=== PATIENT | male | born 1985 | race Caucasian/White ===

== ENCOUNTER 2023-10-17 20:57 | Emergency (ER) | payer OTHER, SELFPAY ==
[2023-10-17 21:00] VITALS: BP 158/110
--- NOTE | 2023-10-17 22:10 | ED.GENMED ---
History of Present Illness
General
Chief Complaint: Breathing Problem
Source: patient
Exam Limitations: none
Time Seen by Provider: 10/17/23 21:50
Travel History
Have you had any contact with someone who has COVID-19?: No
Do you have any symptoms of coronavirus? Fever > 100 degrees, chills, cough, shortness of breath, sore throat, loss of taste or smell, muscle aches, or headache?: No
History of Present Illness
History of Present Illness:
This is a 38 year old male that comes in with c/o anxiety and chest tightness. States that he was using his nebulizer and he felt like it was not working. State that he started to feel SOB and chest tightness. States that he started to feel
disoriented. States that he has seen his PCP and he was given something for anxiety that he takes in the morning. States that he also had an episode yesterday at 3am and he did not come in. Denies any fever, chills, abd pain, nausea, vomiting,
diarrhea, headache, urinary burning.
Past History
Past History
ED Past Medical History: COPD, HTN (with the Use of Albuterol) and Other (Migraines)
ED Past Surgical History: Orthopedic (Right ankle surgery) and Other (Sinus surgery)
Social History
Tobacco: Smoker (1ppd)
Alcohol: None
Drug: Marijuana (smokes daily)
Personal: Single
Living: with family
Family History
Family History: Negative Diabetes, Hypertension or CAD
Review of Systems
Review of Systems
All Other Systems: ROS reviewed and negative except as documented in HPI and ROS
Constitutional: Reports no symptoms; Denies fever or chills
EENT: Reports no symptoms
Respiratory: Reports trouble breathing (Slight); Denies cough
Cardiac: Reports chest pain (Tightness)
ABD/GI: Reports no symptoms; Denies abdominal pain, nausea, vomiting or diarrhea
: Reports no symptoms; Denies dysuria, frequency or urgency
Musculoskeletal: Reports no symptoms
Skin: Reports no symptoms
Neurological: Reports other (felt disoriented); Denies headache
Psychiatric: Reports no symptoms
Phy Exam
General Physical Exam
General Presentation: no apparent distress
General age: appears stated age
General Skin: warm and dry
General Habitus: normal
General Mental: alert
General Hydration: appears well hydrated
ENT Exam
ENT Exam: TM's normal, pharynx normal and neck supple
Eye Exam
Eye Exam: EOMI
Cardiovascular Exam
Cardiovascular Exam: regular rate/rhythm, no edema, no murmur and normal peripheral pulses
Pulmonary Exam
Pulmonary Exam: lungs clear, no respiratory distress, no rales, chest non tender, no crackles, no rhonchi, no wheezing and no cough
Gastrointestinal Exam
Gastrointestinal Exam: normal bowel sounds, soft, no organomegaly, no pulsatile mass, non distended and tender (Upper abd tenderness with palpation)
Musculoskeletal Exam
Musculoskeletal Exam: full ROM
Skin Exam
Skin Exam: normal color, warm/dry, no rash and no petechia
Psychiatric Exam
Psychiatric Exam: normal mood/affect
Course
Orders/Labs/Results
Orders:
Orders
10/17/23 22:09
Electrocardiogram (*1) Urgent
Reason for Study: Shortness of Breath
EKG- Treatment ONCE
Lorazepam [Ativan] 1 mg PO NOW STA
10/17/23 22:14
Pantoprazole [Protonix IV] 40 mg IV NOW STA
10/17/23 22:23
Comprehensive Metabolic Panel Urgent
Troponin I Urgent
10/17/23 22:24
Complete Blood Count/With Diff Urgent
Abnormal Lab Results
10/17/23
22:24
WBC 11.3 H 10^3/uL
(4.8-10.8)
RBC 4.67 L 10^6/uL
(4.70-6.10)
MCH 33.2 H pg
(27.0-31.0)
Abs Immat Gran (auto) 0.1 H 10^3/uL
(0-0.05)
Absolute Neuts (auto) 7.1 H 10^3/uL
(1.4-6.5)
Absolute Monos (auto) 0.9 H 10^3/uL
(0.1-0.6)
Immature Gran % 0.7 H %
(0-0.5)
10/17/23 22:24
10/17/23 22:23
WBC very slightly elevated. Otherwise labs normal.
Vital Signs
Initial and Last Documented VS:
Initial Vital Signs
Temp Pulse Resp BP Pulse Ox
98.7 F 102 22 158/110 95
10/17/23 21:00 10/17/23 21:00 10/17/23 21:00 10/17/23 21:00 10/17/23 21:00
Last Documented Vital Signs
Temp Pulse Resp BP Pulse Ox
98.7 F 95 24 158/110 95
10/17/23 21:00 10/17/23 22:30 10/17/23 22:30 10/17/23 21:00 10/17/23 21:00
MDM/Problems Addressed
Differential Diagnosis Includes:
Anxiety
MDM/Problems Addressed:
This is a 38 year old male that comes in with c/o anxiety. States that he felt like his Nebulizer was not working and the he started with chest tightness. States that he had an episode yesterday but did not come in.
Will check labs, Give Ativan and Protonix.
Back into see patient. Patient states that he is feeling better. Explained that this is most likely all anxiety. Encouraged patient to follow up with the family doctor and a Psychiatrist for further evaluation. Patient to return with any concerns.
Chronic conditions affecting care: COPD
Acute Exacerbation and/or Progression of Chronic Illness:
NA
*Pulse Oximetry
Patient hypoxic: no
*It Infrastructure Architect Interpretation
Rate: tachycardiac
Heart Rate: 102
Rhythm: sinus tachycardia
*Critical Care Note
Total Time (30-74mins, 75-104mins- exclusive of procedures): Not Applicable
ED Attending Note
-
Portions of this chart may have been created with voice recognition software.� Occasional wrong word or��sound alike� substitutions may have occurred due to the inherent limitations of voice recognition software.
Discharge Plan
Departure
Patient Disposition: Home (Routine Discharge)
Date of Disposition: 10/17/23
Time of Disposition: 23:27
Patient with high blood pressure during this ER visit?: Yes
Condition: Good
Covid-19: Not Applicable
Discharge Problem:
Anxiety
Instructions: Anxiety, Adult (DC)
Prescriptions:
No Action
Primatene Mist 0.125 mg/actuation Hfa Aerosol Inhaler
1 puff INHALATION Q4H PRN (Reason: SOB)
ipratropium-albuterol 0.5 mg-3 mg(2.5 mg base)/3 mL solution for nebulization
3 ml inhalation Q8H PRN (Reason: shortness of breath or wheezing) Qty: 180 0RF
albuterol sulfate 90 mcg/actuation HFA aerosol inhaler
2 puff inhalation Q6H PRN (Reason: shortness of breath or wheezing) Qty: 6.7 0RF
prednisone 10 mg Tablet
See Rx Instructions .ROUTE .COMPLEX Qty: 18 0RF
Patient Comments:
06/01/23: pt on day 1 of 20mg dose
Rx Instructions:
Take By Mouth:
30 mg daily x3 days,
20 mg daily x3 days, 10 mg daily x3 days.
budesonide 0.5 mg/2 mL suspension for nebulization
0.5 mg inhalation R BID
doxycycline hyclate 100 mg capsule
100 mg PO Q12
pantoprazole 40 mg tablet,delayed release (DR/EC)
40 mg PO DAILY
Referrals:
Cony Maradiaga MD [Family Provider] - Call in 1-3 days for appt
Activity Restrictions/Additional Instructions:
As discussed, your blood work shows that your WBC are slightly elevated. This can happen with stress. This appears to be anxiety. Please follow up with the family doctor and your need to see a Psychiatrist for further evaluation. IF YOU HAVE ANY
OTHER CONCERNS PLEASE RETURN TO THE EMERGENCY ROOM.
Interventions
Interventions:
*Risk Screen - Suicide Last Done: 10/17/23 21:00
*General Assessment Last Done: 10/17/23 22:29
*Neglect/Abuse Screening Last Done: 10/17/23 21:00
ED- Cardiac Assessment Last Done: 10/17/23 22:29
ED- Pulmonary Assessment Last Done: 10/17/23 22:29
[2023-10-17] MEDS: PROTONIX IV 40 MG IV (22:24)
[2023-10-17] MEDS: ATIVAN 1 MG PO (22:24)
[2023-10-17 22:34] LABS: % Basophils 0.7 % (0-2); % Eosinophils 2.9 % (0-6); % Immature Granulocytes 0.7 % (0-0.5); % Lymphocytes 25.1 % (20.5-51.1); % Monocytes 8.2 % (1.7-9.3); % Neutrophils 62.4 % (42.2-75.2); Absolute Basophils 0.1 10^3/uL (0-0.2); Absolute Eosinophils 0.3 10^3/uL (0-0.7); Absolute Immature Granulocytes 0.1 10^3/uL (0-0.05); Absolute Lymphocytes 2.9 10^3/uL (1.2-3.4); Absolute Monocytes 0.9 10^3/uL (0.1-0.6); Absolute Neutrophils 7.1 10^3/uL (1.4-6.5); Hematocrit 42.6 % (39.0-52.0); Hemoglobin 15.5 g/dL (13.0-18.0); Mean Corp Hgb Conc. 36.4 g/dL (33.0-37.0); Mean Corpuscular Hgb 33.2 pg (27.0-31.0); Mean Corpuscular Volume 91.2 fL (80.0-94.0); Mean Platelet Volume 10.3 fL (7.4-10.4); Nucleated Red Blood Cells % 0 % (-); Platelet Count 207 10^3/uL (130-400); Red Blood Cell Count 4.67 10^6/uL (4.70-6.10); Red Cell Dist. Width 12.7 % (11.5-14.5); White Blood Cell Count 11.3 10^3/uL (4.8-10.8)
[2023-10-17 22:56] LABS: ALT (SGPT) 25 U/L (0-50); AST (SGOT) 23 U/L (17-59); Albumin 4.6 g/dl (3.5-5.0); Alkaline Phosphatase 65 U/L (38-126); Blood Urea Nitrogen 15 mg/dl (9-20); Calcium 9.3 mg/dl (8.4-10.2); Carbon Dioxide 25 mmol/L (22-30); Chloride 107 mmol/L (98-107); Glucose 84 mg/dl (70-99); Sodium 138 mmol/L (135-145); Total Protein 7.1 g/dl (6.3-8.2); eGFR > 60.00
[2023-10-17 22:58] LABS: Troponin I < 0.012 ng/ml
[2023-10-17 23:29] VITALS: BP 141/91
== END 2023-10-18 00:07 | disposition home or self-care (01) ==
LOC: EMR 20:57
PROVIDERS: Clinical Nurse Specialist Family Health; EMERGENCY PHYSICIAN Emergency Medicine; FAMILY PHYSICIAN Internal Medicine
DX: F41.9 Anxiety disorder, unspecified (principal); R07.89 Other chest pain; J44.9 Chronic obstructive pulmonary disease, unspecified; I10 Essential (primary) hypertension; F17.200 Nicotine dependence, unspecified, uncomplicated
CPT/HCPCS: 99283; 96374; 80053; 84484; 85025; 93005

== ENCOUNTER 2023-10-19 06:18 | Emergency (ER) | payer SELFPAY ==
[2023-10-19 06:25] VITALS: BMI 35.1
[2023-10-19 06:28] VITALS: BP 139/100
--- NOTE | 2023-10-19 06:28 | ED.GENMED ---
History of Present Illness
General
Chief Complaint: Anxiety
Source: patient
Exam Limitations: none
Time Seen by Provider: 10/19/23 06:23
Travel History
Have you had any contact with someone who has COVID-19?: No
Do you have any symptoms of coronavirus? Fever > 100 degrees, chills, cough, shortness of breath, sore throat, loss of taste or smell, muscle aches, or headache?: No
History of Present Illness
History of Present Illness:
See MDM
Past History
Past History
ED Past Medical History: COPD, HTN (with the Use of Albuterol) and Other (Migraines)
ED Past Surgical History: Orthopedic (Right ankle surgery) and Other (Sinus surgery)
Social History
Tobacco: Smoker (1ppd)
Alcohol: None
Drug: Marijuana (smokes daily)
Personal: Single
Living: with family
Family History
Family History: Negative Diabetes, Hypertension or CAD
Phy Exam
Physical Exam
Physical Exam:
See MDM
Course
Orders/Labs/Results
Orders:
Orders
10/19/23 06:23
ECG [Electrocardiogram (*1)] Urgent
Reason for Study: Shortness of Breath
Cardiology Consult: Unknown
10/19/23 06:24
EKG- Treatment ONCE
10/19/23 06:28
CR Chest - 2 Views Urgent
Comment:
Reason For Exam: SOB
Vital Signs
Initial and Last Documented VS:
Initial Vital Signs
Pulse Resp BP Pulse Ox
79 20 139/100 97
10/19/23 06:28 10/19/23 06:28 10/19/23 06:28 10/19/23 06:28
Last Documented Vital Signs
Pulse Resp BP Pulse Ox
79 20 139/100 97
10/19/23 06:28 10/19/23 06:28 10/19/23 06:28 10/19/23 06:28
MDM/Problems Addressed
Differential Diagnosis Includes:
HPI and MDM Narrative:
38-year-old male presenting for evaluation of shortness of breath. He was here few days ago for the similar issues. At that time, it was believed to be anxiety. Patient states he woke up from sleep this morning and was unable to breathe. He
called 911 and symptoms resolved on their own.
On arrival, patient is in no acute distress. Lungs are clear. Given that this is his second ER visit for the same issue, will obtain chest x-ray and EKG headache
Physical exam
General: Well appearing and non-toxic
HEENT: protecting airway
Neck: appears supple
CV: No evidence of cyanosis
Resp: No accessory muscle use. Lungs clear
Abd: Non-distended
Extremities: No deformities
Neuro: alert
Psych: Normal affect
Skin: Intact
Problems Addressed including Acute and Chronic Conditions affecting care:
1. Shortness of breath
Acuity: acute
Prognosis: stable
Details: Symptoms appear to have resolved on their own. Patient is unsure if this to anxiety. Will obtain chest x-ray
Updates
Chest x-ray clear. On multiple reassessments, patient remains well-appearing and nontoxic. The shortness of breath has not returned. I discussed that he should talk to his primary care doctor about anxiety and shortness of breath from sleep. We
discussed the possibility of undiagnosed sleep apnea
Differential Diagnosis (but not limited to): Anxiety, viral
Testing considered: Repeating blood work
Drug therapy (if applicable): OTC meds, please see d/c instruction regarding Rx drugs
Amount and/or Complexity of Data Reviewed
Clinical info obtained from: Patient
External data reviewed: N/A
Labs I independently reviewed (but not limited to): N/A
Radiology: X-ray independently reviewed: Chest x-ray clear
Pulse Ox: not hypoxic
EKG independently reviewed: Sinus rhythm, normal axis, no STEMI
Cotton Ball Machine Tender: N/A
Critical Care: N/A
Risk of Complication:
Social Determinants of health: Good social support
Discussed with other providers: N/A
Escalation of Care includes Admit/Obs: After being observed in the Emergency Department, pt stable for discharge.
Occasional wrong word or 'sound a like' substitutions may have occurred due to the inherent limitations of voice recognition software. Read the chart carefully and recognize, using context, where substitutions have occurred.
*Critical Care Note
Total Time (30-74mins, 75-104mins- exclusive of procedures): Not Applicable
ED Attending Note
-
Portions of this chart may have been created with voice recognition software.� Occasional wrong word or��sound alike� substitutions may have occurred due to the inherent limitations of voice recognition software.
Discharge Plan
Departure
Patient Disposition: Home (Routine Discharge)
Date of Disposition: 10/19/23
Time of Disposition: 07:33
Patient with high blood pressure during this ER visit?: Yes
Discharge Problem:
Acute dyspnea
Instructions: BLOOD PRESSURE
Prescriptions:
No Action
Primatene Mist 0.125 mg/actuation Hfa Aerosol Inhaler
1 puff INHALATION Q4H PRN (Reason: SOB)
albuterol sulfate 90 mcg/actuation HFA aerosol inhaler
2 puff inhalation Q6H PRN (Reason: shortness of breath or wheezing) Qty: 6.7 0RF
escitalopram oxalate
10 mg PO DAILY
Referrals:
Cony Maradiaga MD [Family Provider] -
Activity Restrictions/Additional Instructions:
Please return for any worsening symptoms.
You may return at any time if you have further concerns.
Please follow up with your doctor at the first available appointment, preferably this week. It is not clear what is causing your shortness of breath episodes. Please talk to your doctor about anxiety and possible sleep apnea.
Thank you for choosing [facility].
Interventions
Interventions:
*Risk Screen - Suicide Last Done: 10/19/23 06:20
*General Assessment Last Done: 10/19/23 06:20
*Neglect/Abuse Screening Last Done: 10/19/23 06:20
ED- Fall Risk Assessment Last Done: 10/19/23 06:28
*ED COVID-19 Vaccine History Last Done: 10/19/23 06:20
ED-Psychological Assessment Last Done: 10/19/23 06:28
[2023-10-19 07:45] VITALS: BP 138/88
== END 2023-10-19 07:45 | disposition home or self-care (01) ==
LOC: EMR 06:18
PROVIDERS: EMERGENCY PHYSICIAN Student in an Organized Health Care Education/Training Program; FAMILY PHYSICIAN Internal Medicine
DX: R06.00 Dyspnea, unspecified (principal); R06.02 Shortness of breath; I10 Essential (primary) hypertension; F17.210 Nicotine dependence, cigarettes, uncomplicated; F41.9 Anxiety disorder, unspecified
CPT/HCPCS: 99284; 71046; 93005

== ENCOUNTER 2023-10-20 19:52 | Emergency (ER) | payer SELFPAY ==
[2023-10-20 19:53] VITALS: BMI 34.9
[2023-10-20 19:57] VITALS: BP 166/99
[2023-10-20 20:22] LABS: COVID-19 Antigen Negative (Negative)
[2023-10-20 21:12] VITALS: BP 154/109
--- NOTE | 2023-10-20 21:18 | EDRN ---
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 Pt. reports he was given 'the same medicine that you guys had given me for anxiety'.
Pt. reports was then discharged from [facility].
[2023-10-20 22:00] VITALS: BP 151/95
--- NOTE | 2023-10-20 22:28 | ED.GENMED ---
History of Present Illness
<RAMON Christensen - Last Filed: 10/21/23 03:31>
General
Chief Complaint: Breathing Problem
Source: patient
Exam Limitations: none
Time Seen by Provider: 10/20/23 22:08
Nursing documentation reviewed up to this point in time: agreed with
Travel History
Have you had any contact with someone who has COVID-19?: No
Do you have any symptoms of coronavirus? Fever > 100 degrees, chills, cough, shortness of breath, sore throat, loss of taste or smell, muscle aches, or headache?: No
History of Present Illness
History of Present Illness:
This is a 38 year old male, with a PMH of anxiety and asthma, who presents to the ED c/o SOB x 6 hours. Pt states he was seen here twice in the past 5 days and was also seen at [facility] 2 days ago for the same problem. He was told that all of his
testing was normal and that he was experiencing anxiety. He states his symptoms have been coming and going and tonight they lasted for about 6 hours. He felt as though his chest was tight and he was having difficulty taking a deep breath. Pt also
states he has had some palpitations and a dry cough during these episodes. He saw his spar cap beveler today who told him he has COPD. Pt also adds that he lives with his grandma who tends to make him feel anxious during these episodes. He used his
albuteral inhaler 20 minutes ago which has helped. He currently has no symptoms. He denies any congestion, SPRINGER, nausea, vomiting, fever, or any wheezing.
Past History
<RAMON Christensen - Last Filed: 10/21/23 03:31>
Past History
ED Past Medical History: Asthma, COPD, HTN (with the Use of Albuterol) and Other (Migraines)
ED Past Surgical History: Orthopedic (Right ankle surgery) and Other (Sinus surgery)
Social History
Tobacco: Smoker (1ppd)
Alcohol: None
Drug: Marijuana (smokes daily)
Personal: Single
Living: with family
Family History
Family History: Negative Diabetes, Hypertension or CAD
Review of Systems
<RAMON Christensen - Last Filed: 10/21/23 03:31>
Review of Systems
Allergies reviewed?: Yes
All Other Systems: ROS reviewed and negative except as documented in HPI and ROS
Constitutional: Reports no symptoms; Denies fever or chills
EENT: Reports no symptoms; Denies sore throat
Respiratory: Reports cough and trouble breathing
Cardiac: Reports chest pain ('tightness') and palpitations
ABD/GI: Denies nausea or vomiting
: Reports no symptoms
Musculoskeletal: Reports no symptoms
Skin: Reports no symptoms
Neurological: Reports no symptoms; Denies headache
Psychiatric: Reports anxiety
Phy Exam
<RAMON Christensen - Last Filed: 10/21/23 03:31>
General Physical Exam
General Presentation: mild distress
General age: appears stated age
General Skin: warm and dry
General Habitus: normal
General Mental: alert
General Hydration: appears well hydrated
ENT Exam
ENT Exam: pharynx normal, normocephalic and swallowing well
Cardiovascular Exam
Cardiovascular Exam: regular rate/rhythm, no edema, no murmur and normal peripheral pulses
Pulmonary Exam
Pulmonary Exam: lungs clear, no respiratory distress, no rales, no crackles, no rhonchi, no wheezing and no cough
Oxygen Status: room air
Gastrointestinal Exam
Gastrointestinal Exam: normal bowel sounds, non tender, soft and non distended
Neurological Exam
Neurological Exam: alert and oriented x3
Musculoskeletal Exam
Musculoskeletal Exam: full ROM and no edema
Skin Exam
Skin Exam: normal color and warm/dry
Psychiatric Exam
Psychiatric Exam: normal mood/affect
Course
<RAMON Christensen - Last Filed: 10/21/23 03:31>
Orders/Labs/Results
Orders:
Orders
10/20/23 20:02
COVID-19 Antigen Urgent
Source: Nasal Swab
Influenza A+B Rapid Molecular Urgent
CARLOS Source: Nasal Swab
Specimen Description:
10/20/23 22:10
ECG [Electrocardiogram (*1)] Urgent
Reason for Study: Chest Pain
10/20/23 22:12
EKG- Treatment ONCE
10/20/23 22:57
Crisis Consult Urgent
Reason for Consult: anxiety
Comment: resources for outpt?
Lorazepam [Ativan] 0.25 mg IV NOW STA
10/20/23 23:33
Complete Blood Count/With Diff Urgent
Comprehensive Metabolic Panel Urgent
Troponin I Urgent
10/21/23 00:47
US Abdomen Complete/Upper Urgent
Comment:
Reason For Exam: elev tbili, cp
Abnormal Lab Results
10/20/23
23:33
WBC 11.9 H 10^3/uL
(4.8-10.8)
MCH 33.2 H pg
(27.0-31.0)
MPV 10.5 H fL
(7.4-10.4)
Abs Immat Gran (auto) 0.1 H 10^3/uL
(0-0.05)
Absolute Neuts (auto) 6.9 H 10^3/uL
(1.4-6.5)
Absolute Lymphs (auto) 3.7 H 10^3/uL
(1.2-3.4)
Absolute Monos (auto) 0.9 H 10^3/uL
(0.1-0.6)
Immature Gran % 0.6 H %
(0-0.5)
Carbon Dioxide 17 L mmol/L
(22-30)
Creatinine 0.6 L mg/dL
(0.7-1.3)
Total Bilirubin 1.4 H mg/dl
(0.2-1.3)
10/20/23 23:33
10/20/23 23:33
Vital Signs
Initial and Last Documented VS:
Initial Vital Signs
Temp Pulse Resp BP Pulse Ox
97.5 F 90 24 166/99 98
10/20/23 19:57 10/20/23 19:57 10/20/23 19:57 10/20/23 19:57 10/20/23 19:57
Last Documented Vital Signs
Temp Pulse Resp BP Pulse Ox
97.5 F 72 22 132/101 95
10/20/23 19:57 10/21/23 02:15 10/21/23 02:15 10/21/23 02:07 10/21/23 02:15
<Rodriguez Richards, DO - Last Filed: 10/21/23 02:09>
Orders/Labs/Results
Orders:
Orders
10/20/23 20:02
COVID-19 Antigen Urgent
Source: Nasal Swab
Influenza A+B Rapid Molecular Urgent
CARLOS Source: Nasal Swab
Specimen Description:
10/20/23 22:10
ECG [Electrocardiogram (*1)] Urgent
Reason for Study: Chest Pain
10/20/23 22:12
EKG- Treatment ONCE
10/20/23 22:57
Crisis Consult Urgent
Reason for Consult: anxiety
Comment: resources for outpt?
Lorazepam [Ativan] 0.25 mg IV NOW STA
10/20/23 23:33
Complete Blood Count/With Diff Urgent
Comprehensive Metabolic Panel Urgent
Troponin I Urgent
10/21/23 00:47
US Abdomen Complete/Upper Urgent
Comment:
Reason For Exam: elev tbili, cp
Abnormal Lab Results
10/20/23
23:33
WBC 11.9 H 10^3/uL
(4.8-10.8)
MCH 33.2 H pg
(27.0-31.0)
MPV 10.5 H fL
(7.4-10.4)
Abs Immat Gran (auto) 0.1 H 10^3/uL
(0-0.05)
Absolute Neuts (auto) 6.9 H 10^3/uL
(1.4-6.5)
Absolute Lymphs (auto) 3.7 H 10^3/uL
(1.2-3.4)
Absolute Monos (auto) 0.9 H 10^3/uL
(0.1-0.6)
Immature Gran % 0.6 H %
(0-0.5)
Carbon Dioxide 17 L mmol/L
(22-30)
Creatinine 0.6 L mg/dL
(0.7-1.3)
Total Bilirubin 1.4 H mg/dl
(0.2-1.3)
10/20/23 23:33
10/20/23 23:33
Vital Signs
Initial and Last Documented VS:
Initial Vital Signs
Temp Pulse Resp BP Pulse Ox
97.5 F 90 24 166/99 98
10/20/23 19:57 10/20/23 19:57 10/20/23 19:57 10/20/23 19:57 10/20/23 19:57
Last Documented Vital Signs
Temp Pulse Resp BP Pulse Ox
97.5 F 72 22 132/101 95
10/20/23 19:57 10/21/23 02:15 10/21/23 02:15 10/21/23 02:07 10/21/23 02:15
<RAMON Christensen - Last Filed: 10/21/23 03:31>
*Critical Care Note
Total Time (30-74mins, 75-104mins- exclusive of procedures): Not Applicable
<Rodriguez Richards DO - Last Filed: 10/21/23 02:09>
Update Note
Update Note:
Patient seen by crisis and given resources for outpatient therapy.
US abdomen, complete
No prior imaging for comparison
IMPRESSION:
-Echogenic hepatic parenchyma, suggestive of hepatic steatosis. No focal liver mass where seen. Smooth capsular contours. Hepatopetal portal venous flow.
-Normal gallbladder, without shadowing gallstone. No significant gallbladder wall thickening or pericholecystic fluid. Reported negative sonographic Antonio sign.
-No significant intrahepatic or extrahepatic biliary ductal dilation. CBD measures 4 mm.
-Pancreas normal where seen.
-Normal bilateral kidneys, without hydronephrosis, nephrolithiasis or solid mass.
-Normal spleen, 12.4 cm.
ED Attending Note
<RAMON Christensen - Last Filed: 10/21/23 03:31>
-
Portions of this chart may have been created with voice recognition software.� Occasional wrong word or��sound alike� substitutions may have occurred due to the inherent limitations of voice recognition software.
<Rodriguez Richards DO - Last Filed: 10/21/23 02:09>
ED Attending Note
Patient seen and examined by attending physician: Yes
I performed the substantive portion of visit, reviewed & personally made and approve the management plan that is documented in note by myself or ROOSEVELT.: Yes
ED Attending Note:
38-year-old male presents with shortness of breath for the last 6 hours. He has a past medical history significant for COPD but states he has not smoked in the last 12 hours. Patient states that his symptoms have been present since Thursday. Since
then, patient has been to the emergency department here 3 times for this issue. He also went to [place] last evening where he had a CT angiogram of the chest which was negative. Patient followed up with pulmonology today, who diagnosed him with
COPD. Patient states that he has been having issues with anxiety in the past. Patient states that he does get some relief with his albuterol inhaler. Patient seen in conjunction with the PA student. I have reviewed and agree with her history and
treatment plan.
Vital signs are stable. Patient not hypoxic
Nursing note reviewed. I agree with nursing documentation up to this point in time.
Home Meds and allergies reviewed.
NUMBER AND COMPLEXITY OF PROBLEMS ADDRESSED AT THE ENCOUNTER
� Chronic conditions affecting care: COPD, anxiety
� Acute Exacerbation and/or Progression of Chronic Illness: Anxiety, COPD
� Differential Diagnosis includes: Anxiety
AMOUNT AND/OR COMPLEXITY OF DATA TO BE REVIEWED AND ANALYZED
I performed an independent evaluation of the following and my interpretation is:
EKG: EKG shows normal sinus rhythm rate of 64 with normal intervals, normal axis. No evidence of acute ischemia present. When compared with previous EKG dated October 19, 2023, no significant change noted.
CT:
X-rays:
Ultrasound:
Laboratory Studies:
Other:
Review of other/old records:
Clinical information was obtained by an independent historian:
Prescriptions/Medications Considered but not given:
Further testing considered but not performed:
RISK OF COMPLICATIONS AND/OR MORBIDITY OR MORTALITY OF PATIENT MANAGEMENT
Social determinants of health affecting care: Good Social Support
Discussion with other providers:
Escalation of care including admission/observation vs risk of discharge considered:
CRITICAL CARE NOTE:
Total Time (exclusive of procedures):
Update:
Discharge Plan
Departure
Patient Disposition: Home (Routine Discharge)
Date of Disposition: 10/21/23
Time of Disposition: 02:07
Patient with high blood pressure during this ER visit?: Yes
Discharge Problem:
COPD exacerbation, Anxiety, Total bilirubin, elevated
Instructions: Exacerbation of COPD (DC), Generalized Anxiety Disorder (DC), BLOOD PRESSURE
Prescriptions:
No Action
Primatene Mist 0.125 mg/actuation Hfa Aerosol Inhaler
1 puff INHALATION Q4H PRN (Reason: SOB)
albuterol sulfate 90 mcg/actuation HFA aerosol inhaler
2 puff inhalation Q6H PRN (Reason: shortness of breath or wheezing) Qty: 6.7 0RF
escitalopram oxalate
10 mg PO DAILY
Referrals:
Cony Maradiaga MD [Family Provider] -
Activity Restrictions/Additional Instructions:
Please follow-up with your family doctor to have a repeat bilirubin test in the future.
It was a pleasure meeting you and taking part in your care. We hope for your continued healing and wellness.
Please read discharge instructions in their entirety. However, they are for general education and may not describe your exact diagnosis at discharge. Information on your ER visit and medical conditions were discussed with you along with appropriate
follow up information...
If indicated, please take your medications as instructed and indicated on discharge paperwork.
Please schedule a follow up appointment as directed. Call to schedule an appointment
Please return to the emergency department with ANY change in, persisting, or worsening of symptoms. If any of your symptoms do not improve, or persist, or become more severe within 6-12 hours, please return to the emergency department for further
care.
Please return to the emergency department if you develop a headache, neck pain/stiffness, fever greater than 100.4F, chest pain, shortness of breath, persistent nausea, vomiting, slurred speech, difficulty walking, numbness/tingling, weakness, signs
of infection or any other symptoms that are worrisome to you.
If you have any questions or concerns please do not hesitate to call the Hospital at
Interventions
Interventions:
*Risk Screen - Suicide Last Done: 10/20/23 19:57
*General Assessment Last Done: 10/20/23 21:11
*Neglect/Abuse Screening Last Done: 10/20/23 19:57
ED- Fall Risk Assessment Last Done: 10/20/23 21:16
*ED COVID-19 Vaccine History Last Done: 10/20/23 21:11
*Nursing Disposition Last Done: 10/21/23 02:59
ED- Cardiac Assessment Last Done: 10/20/23 21:13
ED-Psychological Assessment Last Done: 10/20/23 21:13
ED- Pulmonary Assessment Last Done: 10/20/23 21:13
Discharge Date and Time
Discharge Date/Time: 10/21/23 03:01
[2023-10-20 23:00] VITALS: BP 153/110
[2023-10-20] MEDS: ATIVAN 0.25 MG IV (23:35)
[2023-10-20 23:41] LABS: % Basophils 0.8 % (0-2); % Eosinophils 1.5 % (0-6); % Immature Granulocytes 0.6 % (0-0.5); % Lymphocytes 31.3 % (20.5-51.1); % Monocytes 7.7 % (1.7-9.3); % Neutrophils 58.1 % (42.2-75.2); Absolute Basophils 0.1 10^3/uL (0-0.2); Absolute Eosinophils 0.2 10^3/uL (0-0.7); Absolute Immature Granulocytes 0.1 10^3/uL (0-0.05); Absolute Lymphocytes 3.7 10^3/uL (1.2-3.4); Absolute Monocytes 0.9 10^3/uL (0.1-0.6); Absolute Neutrophils 6.9 10^3/uL (1.4-6.5); Hematocrit 43.7 % (39.0-52.0); Mean Corp Hgb Conc. 36.6 g/dL (33.0-37.0); Mean Corpuscular Hgb 33.2 pg (27.0-31.0); Mean Corpuscular Volume 90.7 fL (80.0-94.0); Mean Platelet Volume 10.5 fL (7.4-10.4); Nucleated Red Blood Cells % 0 % (-); Platelet Count 229 10^3/uL (130-400); Red Blood Cell Count 4.82 10^6/uL (4.70-6.10); Red Cell Dist. Width 12.1 % (11.5-14.5); White Blood Cell Count 11.9 10^3/uL (4.8-10.8)
[2023-10-20 23:59] LABS: ALT (SGPT) 28 U/L (0-50); AST (SGOT) 27 U/L (17-59); Albumin 4.8 g/dl (3.5-5.0); Alkaline Phosphatase 81 U/L (38-126); Blood Urea Nitrogen 15 mg/dl (9-20); Calcium 9.7 mg/dl (8.4-10.2); Carbon Dioxide 17 mmol/L (22-30); Chloride 105 mmol/L (98-107); Estimated Creatinine Clearance > 125 ml/min; Glucose 95 mg/dl (70-99); Potassium 3.6 mmol/L (3.5-5.1); Sodium 135 mmol/L (135-145); Total Bilirubin 1.4 mg/dl (0.2-1.3); Total Protein 7.6 g/dl (6.3-8.2); eGFR > 60.00
[2023-10-21 00:09] LABS: Troponin I < 0.012 ng/ml
[2023-10-21 00:22] VITALS: BP 148/88
[2023-10-21 01:00] VITALS: BP 141/98
[2023-10-21 02:07] VITALS: BP 132/101
== END 2023-10-21 03:01 | disposition home or self-care (01) ==
LOC: EMR 19:52
PROVIDERS: Physician Assistant; EMERGENCY PHYSICIAN Student in an Organized Health Care Education/Training Program; FAMILY PHYSICIAN Internal Medicine
DX: J44.1 Chronic obstructive pulmonary disease with (acute) exacerbation (principal); F41.9 Anxiety disorder, unspecified; R17 Unspecified jaundice; F17.200 Nicotine dependence, unspecified, uncomplicated; I10 Essential (primary) hypertension
CPT/HCPCS: 99285; 96374; 76700; 80053; 84484; 85025; 87502; 87811; 93005

== ENCOUNTER 2023-10-21 12:30 | Emergency (ER) | payer OTHER, SELFPAY ==
[2023-10-21 12:48] VITALS: BP 128/88
[2023-10-21] MEDS: ATIVAN 1 MG PO (16:08)
--- NOTE | 2023-10-21 16:41 | ED.GENMED ---
History of Present Illness
General
Chief Complaint: Anxiety
Source: patient
Exam Limitations: none
Time Seen by Provider: 10/21/23 15:38
Travel History
Have you had any contact with someone who has COVID-19?: No
Do you have any symptoms of coronavirus? Fever > 100 degrees, chills, cough, shortness of breath, sore throat, loss of taste or smell, muscle aches, or headache?: No
History of Present Illness
History of Present Illness:
38-year-old male with history of COPD and anxiety presents with increased symptoms of anxiety starting today. He was brought here by EMS after grandmother called ambulance secondary to an anxiety episode. He describes shortness of breath heart
racing. He also has recently been seen by pulmonology and has been diagnosed with COPD. He had CT angiogram at [facility] several days ago which was negative of his chest.
Past History
Past History
ED Past Medical History: Asthma, COPD, HTN (with the Use of Albuterol) and Other (Migraines)
ED Past Surgical History: Orthopedic (Right ankle surgery) and Other (Sinus surgery)
Social History
Tobacco: Smoker (1ppd)
Alcohol: None
Drug: Marijuana (smokes daily)
Personal: Single
Living: with family
Family History
Family History: Negative Diabetes, Hypertension or CAD
Phy Exam
Physical Exam
Physical Exam:
General: Well-appearing male no acute respiratory distress
HEENT: Normocephalic atraumatic neck is supple
Heart: Regular rate and rhythm no murmurs
Lungs: Clear quotation bilaterally no wheezing
Abdomen: Soft nontender nondistended no guarding or rebound
Extremities: No cyanosis
Course
Orders/Labs/Results
Orders:
Orders
10/21/23 15:54
Lorazepam [Ativan] 1 mg PO NOW STA
Vital Signs
Initial and Last Documented VS:
Initial Vital Signs
Temp Pulse Resp BP Pulse Ox
98.0 F 90 16 128/88 98
10/21/23 12:48 10/21/23 12:48 10/21/23 12:48 10/21/23 12:48 10/21/23 12:48
Last Documented Vital Signs
Temp Pulse Resp BP Pulse Ox
98.0 F 90 16 128/88 98
10/21/23 12:48 10/21/23 12:48 10/21/23 12:48 10/21/23 12:48 10/21/23 12:48
MDM/Problems Addressed
Differential Diagnosis Includes:
Patient with shortness of breath with recent full workup here and other those. He has anxiety. Exam more consistent with anxiety. He is on Lexapro but states his medicine is on the third floor and he stays on the first floor. He is afraid of
getting shortness of breath by climbing up the stairs. He does have family members in the house. I advised that he has to family members to get his medicine down to the first floor form. No indication for any further workup at this time. Was
given Ativan here to help but advised that he follow-up with family doctor for other
*Critical Care Note
Total Time (30-74mins, 75-104mins- exclusive of procedures): Not Applicable
ED Attending Note
-
Portions of this chart may have been created with voice recognition software.� Occasional wrong word or��sound alike� substitutions may have occurred due to the inherent limitations of voice recognition software.
Discharge Plan
Departure
Patient Disposition: Home (Routine Discharge)
Date of Disposition: 10/21/23
Time of Disposition: 16:44
Patient with high blood pressure during this ER visit?: No
Discharge Problem:
Anxiety
Instructions: Anxiety, Adult (DC)
Prescriptions:
No Action
Primatene Mist 0.125 mg/actuation Hfa Aerosol Inhaler
1 puff INHALATION Q4H PRN (Reason: SOB)
albuterol sulfate 90 mcg/actuation HFA aerosol inhaler
2 puff inhalation Q6H PRN (Reason: shortness of breath or wheezing) Qty: 6.7 0RF
escitalopram oxalate
10 mg PO DAILY
Referrals:
Cony Maradiaga MD [Family Provider] -
Activity Restrictions/Additional Instructions:
Please continue to follow-up with your family doctor for further treatment regarding your anxiety. Return if you needed otherwise.
Interventions
Interventions:
*ED COVID-19 Vaccine History Last Done: 10/21/23 12:48
ED-Psychological Assessment Last Done: 10/21/23 14:50
== END 2023-10-21 17:14 | disposition home or self-care (01) ==
LOC: EMR 12:30
PROVIDERS: EMERGENCY PHYSICIAN Student in an Organized Health Care Education/Training Program; FAMILY PHYSICIAN Internal Medicine
DX: F41.9 Anxiety disorder, unspecified (principal); I10 Essential (primary) hypertension; F17.200 Nicotine dependence, unspecified, uncomplicated; J44.9 Chronic obstructive pulmonary disease, unspecified
CPT/HCPCS: 99283

== ENCOUNTER 2024-06-23 17:54 | Emergency (ER) | payer SELFPAY ==
[2024-06-23 17:57] VITALS: BP 154/74
--- NOTE | 2024-06-23 18:38 | ED.GENMED ---
History of Present Illness
General
Chief Complaint: Oral/Mouth Problem
Source: patient
Exam Limitations: none
Time Seen by Provider: 06/23/24 18:38
Nursing documentation reviewed up to this point in time: agreed with
History of Present Illness
History of Present Illness:
39-year-old male past medical history of anxiety COPD presenting to the emergency department today with concerns of right lower tooth discomfort over the past few days has not seen a dentist for multiple years due to insurance issues. Denies fevers
trouble swallowing or breathing.
Past History
Past History
ED Past Medical History: Asthma, COPD, HTN (with the Use of Albuterol) and Other (Migraines)
ED Past Surgical History: Orthopedic (Right ankle surgery) and Other (Sinus surgery)
Social History
Tobacco: Smoker (1ppd)
Alcohol: None
Drug: Marijuana (smokes daily)
Personal: Single
Living: with family
Family History
Family History: Negative Diabetes, Hypertension or CAD
Review of Systems
Review of Systems
Allergies reviewed?: Yes
All Other Systems: ROS reviewed and negative except as documented in HPI and ROS
Phy Exam
Physical Exam
Physical Exam:
GENERAL: Alert , in no apparent distress
EYE: pupils equal and reactive
NECK: Supple, no significant adenopathy.
ENT: Generally poor dentition throughoutVery small area of inflammation at the right sided mandibular canine tooth. No significant area of fluctuance or induration normal posterior pharynx o/p clr, mmm.
CARDIAC: Regular rate and rhythm .
LUNGS: Clear breath sounds bilaterally, no acute respiratory distress, no wheezes/rales/rhonchi
ABDOMEN: Soft, without focal tenderness, no r/g, no cvat
NEUROLOGICAL: Alert and oriented, no focal neuro deficits
SKIN: Warm and dry, skin intact.
MUSCULOSKELETAL: No edema, well perfused.
PSYCH: Normal and appropriate interaction.
Course
Orders/Labs/Results
Orders:
Orders
06/23/24 18:38
Amoxicillin 875 mg/Clav 125 mg [Augmentin 875 mg/125 mg] 1 tablet PO NOW STA
Ketorolac [Toradol] 30 mg IM NOW STA
Vital Signs
Initial and Last Documented VS:
Initial Vital Signs
Temp Pulse Resp BP Pulse Ox
98.4 F 92 16 154/74 99
06/23/24 17:57 06/23/24 17:57 06/23/24 17:57 06/23/24 17:57 06/23/24 17:57
Last Documented Vital Signs
Temp Pulse Resp BP Pulse Ox
98.4 F 92 16 154/74 99
06/23/24 17:57 06/23/24 17:57 06/23/24 17:57 06/23/24 17:57 06/23/24 17:57
MDM/Problems Addressed
MDM/Problems Addressed:
39-year-old male presenting to the emergency department today with concerns of dental discomfort. Patient does appear to have a small area of inflammation and pulpitis but started on antibiotics otherwise given pain medication here and given
information for dental follow-up. No evidence of significant abscess requiring or drainage at this time. Normal posterior pharynx able to tolerate by mouth no fevers. Stable for outpatient management. Return precautions given.
*Critical Care Note
Total Time (30-74mins, 75-104mins- exclusive of procedures): Not Applicable
ED Attending Note
-
Portions of this chart may have been created with voice recognition software.� Occasional wrong word or��sound alike� substitutions may have occurred due to the inherent limitations of voice recognition software.
Discharge Plan
Departure
Patient Disposition: Home (Routine Discharge)
Date of Disposition: 06/23/24
Time of Disposition: 18:40
Patient with high blood pressure during this ER visit?: No
Condition: Good
Covid-19: Not Applicable
Discharge Problem:
Pain, dental, Acute pulpitis
Instructions: Dental Pain (DC)
Prescriptions:
New
amoxicillin-pot clavulanate 875-125 mg tablet
1 tab PO BID 7 Days Qty: 14 0RF
ibuprofen 600 mg tablet
600 mg PO Q8H PRN (Reason: Pain) Qty: 14 0RF
No Action
Primatene Mist 0.125 mg/actuation Hfa Aerosol Inhaler
1 puff INHALATION Q4H PRN (Reason: SOB)
albuterol sulfate 90 mcg/actuation HFA aerosol inhaler
2 puff inhalation Q6H PRN (Reason: shortness of breath or wheezing) Qty: 6.7 0RF
escitalopram oxalate
10 mg PO DAILY
Activity Restrictions/Additional Instructions:
You came to the emergency department today with concerns of discomfort to your mouth. This appears to be a dental infection. Please take Augmentin twice daily for neck 7 days as well as the pain medication provided. Please follow-up closely with
the [facility] clinic where they have a free dental clinic. Please call [phone] to set up an appointment. Follow-up is very important for this as we are not able to definitively manage dental issues in the ER and a dentist will be required
to ensure this does not worsen in the future. Otherwise please return to the emergency department for any worsening, new or concerning symptoms.
Interventions
Interventions:
*Risk Screen - Suicide Last Done: 06/23/24 17:57
*General Assessment Last Done: 06/23/24 18:39
*Neglect/Abuse Screening Last Done: 06/23/24 17:57
ED- Fall Risk Assessment Last Done: 06/23/24 18:39
*ED COVID-19 Vaccine History Last Done: 06/23/24 18:39
*Nursing Disposition Last Done: 06/23/24 18:52
Discharge Date and Time
Discharge Date/Time: 06/23/24 18:52
Print Language: [id number]
[2024-06-23] MEDS: TORADOL 30 MG IM (18:48)
[2024-06-23] MEDS: AUGMENTIN 875 MG/125 MG 1 TABLET PO (18:48)
== END 2024-06-23 18:52 | disposition home or self-care (01) ==
LOC: EMR 17:54
PROVIDERS: EMERGENCY PHYSICIAN Emergency Medicine
DX: K04.01 Reversible pulpitis (principal); I10 Essential (primary) hypertension; J44.89 Other specified chronic obstructive pulmonary disease; F17.200 Nicotine dependence, unspecified, uncomplicated; Z59.71 Insufficient health insurance coverage
CPT/HCPCS: 96372; 99284

== ENCOUNTER 2024-12-12 11:15 | Observation (INO) | payer SELFPAY ==
[2024-12-11 21:00] VITALS: BP 166/122
[2024-12-11 21:14] LABS: % Basophils 0.3 % (0-2); % Eosinophils 0.7 % (0-6); % Immature Granulocytes 0.9 % (0-0.5); % Lymphocytes 16.6 % (20.5-51.1); % Monocytes 8.2 % (1.7-9.3); % Neutrophils 73.3 % (42.2-75.2); Absolute Eosinophils 0.1 10^3/uL (0-0.7); Absolute Immature Granulocytes 0.1 10^3/uL (0-0.05); Absolute Lymphocytes 1.5 10^3/uL (1.2-3.4); Absolute Monocytes 0.8 10^3/uL (0.1-0.6); Absolute Neutrophils 6.7 10^3/uL (1.4-6.5); Hematocrit 47.7 % (39.0-52.0); Hemoglobin 17.3 g/dL (13.0-18.0); Mean Corp Hgb Conc. 36.3 g/dL (33.0-37.0); Mean Corpuscular Hgb 33.7 pg (27.0-31.0); Mean Corpuscular Volume 92.8 fL (80.0-94.0); Mean Platelet Volume 10.1 fL (7.4-10.4); Nucleated Red Blood Cells % 0 % (-); Platelet Count 222 10^3/uL (130-400); Red Blood Cell Count 5.14 10^6/uL (4.70-6.10); Red Cell Dist. Width 12.9 % (11.5-14.5); White Blood Cell Count 9.1 10^3/uL (4.8-10.8)
[2024-12-11 21:39] LABS: ALT (SGPT) 37 U/L (0-50); AST (SGOT) 30 U/L (17-59); Acetaminophen < 10 ug/ml (10-30); Albumin 4.7 g/dl (3.5-5.0); Alkaline Phosphatase 66 U/L (38-126); Blood Urea Nitrogen 10 mg/dl (9-20); Carbon Dioxide 26 mmol/L (22-30); Chloride 103 mmol/L (98-107); Glucose 93 mg/dl (70-99); Potassium 3.9 mmol/L (3.5-5.1); Salicylate < 1.0 mg/dl (2.0-20.0); Sodium 142 mmol/L (135-145); Total Bilirubin 0.6 mg/dl (0.2-1.3); Total Protein 7.9 g/dl (6.3-8.2); eGFR > 60.00
[2024-12-11 21:50] LABS: Alcohol None Detected
[2024-12-12] VITALS (20 sets, daily range): BP systolic 130–171; BP diastolic 84–118; BMI 31.2; BMI 33.9; BMI 33.3
--- NOTE | 2024-12-12 04:56 | ED.GENMED ---
History of Present Illness
General
Chief Complaint: Overdose Unintentional
Source: patient
Exam Limitations: none
Time Seen by Provider: 12/12/24 04:42
Nursing documentation reviewed up to this point in time: agreed with
History of Present Illness
History of Present Illness:
39 year old male with pmh of COPD, anxiety, migraines presents to the ER with concerns of epigastric abdominal pain and nausea for the past few days. Patient states that he has been taking multiple tablets of tylenol and excedrin prior to the onset
of this current illness for headache. He did have 2 episodes of hematemesis that resolved. He denies rectal bleeding or dark tarry stools. He reports that occassionally the pain will radiate into the chest. He does smoke and has hx of COPD. He
denies family history of cardiac disease. He denies back pain. He denies dysuria.
Past History
Past History
ED Past Medical History: Asthma, COPD, HTN (with the Use of Albuterol) and Other (Migraines)
ED Past Surgical History: Orthopedic (Right ankle surgery) and Other (Sinus surgery)
Social History
Tobacco: Smoker (1ppd)
Alcohol: None
Drug: Marijuana (smokes daily)
Personal: Single
Living: with family
Family History
Family History: Negative Diabetes, Hypertension or CAD
Review of Systems
Review of Systems
All Other Systems: ROS reviewed and negative except as documented in HPI and ROS
Phy Exam
Physical Exam
Physical Exam:
General: Patient is well appearing and in no acute distress; non-toxic
Skin: Warm and dry, no rashes or lesions
Head: Normocephalic, atraumatic
Eyes: Sclera non-icteric. EOMs intact.
Cardiac: Tachycardia noted otherwise regular rhythm, no murmurs
Peripheral Vascular: No lower extremity swelling or edema
Pulm: Normal respiratory effort, no wheezes, rales, or rhonchi
Abdomen: Epigastric tenderness to palpation noted
Rectal: Deferred
Neuro: CN II-XII intact, no focal neurologic deficits.
Psychiatric: Appropriate mood and affect.
Course
Orders/Labs/Results
Orders:
Orders
12/11/24 21:02
Bedside Glucose- Treatment ONCE
Urine Drug Abuse Screen Urgent
Date Specimen was Collected: 12/11/24
Time Specimen was Collected: 21:03
12/11/24 21:03
EKG- Treatment ONCE
12/11/24 21:08
Acetaminophen Urgent
Alcohol Urgent
Complete Blood Count/With Diff Urgent
Comprehensive Metabolic Panel Urgent
Lipase Urgent
Comment: ADD
Salicylate Urgent
12/12/24 05:05
0.9% Sodium Chloride 500 ml [Nss] 500 ml IV BOLUS
Mag Hydrox/Al Hydrox/Simeth [Maalox] 30 ml Phenobarb/Hyoscy/Atropine/Scop [] 10 ml PO NOW
Pantoprazole [Protonix IV] 40 mg IV NOW STA
US Abdomen Complete/Upper Urgent
Comment:
Reason For Exam: epigastric pain
12/12/24 05:18
Phenobarb/Hyoscy/Atropine/Scop [] 10 ml .ROUTE .STK-MED ONE
12/12/24 05:19
Mag Hydrox/Al Hydrox/Simeth [Maalox] 30 ml .ROUTE .STK-MED ONE
12/12/24 05:49
Electrocardiogram (*1) Urgent
Reason for Study: Chest Pain
EKG- Treatment ONCE
12/12/24 05:53
Troponin I Urgent
12/12/24 08:50
Add On- LAB Routine
Tests Added?: lipase
Abnormal Lab Results
12/11/24 12/12/24 12/12/24
21:08 05:53 08:17
MCH 33.7 H pg
(27.0-31.0)
Abs Immat Gran (auto) 0.1 H 10^3/uL
(0-0.05)
Absolute Neuts (auto) 6.7 H 10^3/uL
(1.4-6.5)
Absolute Monos (auto) 0.8 H 10^3/uL
(0.1-0.6)
Immature Gran % 0.9 H %
(0-0.5)
Lymphocytes % 16.6 L %
(20.5-51.1)
Troponin I 0.047 H* ng/ml
Salicylates < 1.0 L mg/dl
(2.0-20.0)
Acetaminophen < 10 L ug/ml
(10-30)
U Marijuana (THC) Screen Positive H
(Negative)
12/11/24 21:08
12/11/24 21:08
Vital Signs
Initial and Last Documented VS:
Initial Vital Signs
Temp Pulse Resp BP Pulse Ox
98.7 F 112 22 166/122 97
12/11/24 21:00 12/11/24 21:00 12/11/24 21:00 12/11/24 21:00 12/11/24 21:00
Last Documented Vital Signs
Temp Pulse Resp BP Pulse Ox
98.0 F 103 18 153/109 100
12/12/24 08:20 12/12/24 08:20 12/12/24 08:20 12/12/24 08:20 12/12/24 08:20
MDM/Problems Addressed
Differential Diagnosis Includes:
ddx include gastroenteritis, pancreatitis, medication side effect, gastritis, peptic ulcer, duodenitis, ACS
MDM/Problems Addressed:
39 y/o male hx of copd, migraines, tobacco use disorder presents to the ER with concerns of epigastric abdominal pain and hematemesis, story concerning for gastristic/peptic ulcer. Pt given dose of protonix and GI cocktail with some improvement.
Considering the fact that pain would occasionally radiate into chest, troponin was sent off as well as ekg and his troponin is 0.047 indicating myocardial injury. He will need admission for further evaluation of myocardial injury and further workup
of his symptoms. Case reviewed with ED attending. Pt referred for admission.
*Pulse Oximetry
Patient hypoxic: no
*Critical Care Note
Total Time (30-74mins, 75-104mins- exclusive of procedures): Not Applicable
Data Reviewed
Review of Other/Old Records Reveals: Records (reviewed documentation from 06/23/24, )
ED Attending Note
-
Portions of this chart may have been created with voice recognition software.� Occasional wrong word or��sound alike� substitutions may have occurred due to the inherent limitations of voice recognition software.
Discharge Plan
Departure
Patient Disposition: Admit
Date of Disposition: 12/12/24
Time of Disposition: 07:15
Admit to: Med/Surg
Presentation/result/management discussed w/ accepting MD/DO: Hospitalist
Patient with high blood pressure during this ER visit?: Yes
Condition: Fair
Discharge Problem:
Acute epigastric pain, Elevated troponin
Prescriptions:
No Action
Primatene Mist 0.125 mg/actuation Hfa Aerosol Inhaler
1 puff INHALATION Q4H PRN (Reason: SOB)
albuterol sulfate 90 mcg/actuation HFA aerosol inhaler
2 puff inhalation Q6H PRN (Reason: shortness of breath or wheezing) Qty: 6.7 0RF
escitalopram oxalate
10 mg PO DAILY
amoxicillin-pot clavulanate 875-125 mg tablet
1 tab PO BID 7 Days Qty: 14 0RF
ibuprofen 600 mg tablet
600 mg PO Q8H PRN (Reason: Pain) Qty: 14 0RF
Referrals:
NONE,* [Family Provider] -
Interventions
Interventions:
*Risk Screen - Suicide Last Done: 12/11/24 21:00
*General Assessment Last Done: 12/12/24 02:59
*Neglect/Abuse Screening Last Done: 12/11/24 21:00
*ED- Fall Risk Assessment Last Done: 12/12/24 02:59
*ED COVID-19 Vaccine History Last Done: 12/12/24 02:59
SL-Gqokhc-Uhaorhkoui Assessment Last Done: 12/12/24 02:59
ED- Cardiac Assessment Last Done: 12/12/24 02:59
ED- Neurological Assessment Last Done: 12/12/24 02:59
ED-Psychological Assessment Last Done: 12/12/24 03:07
ED- Pulmonary Assessment Last Done: 12/12/24 02:59
Discharge Date and Time
Print Language: ANGUILLAN
[2024-12-12] MEDS: MAALOX 40 PO (05:33)
[2024-12-12] MEDS: NSS 500 IV (05:33)
[2024-12-12] MEDS: PROTONIX IV 40 MG IV (05:35)
[2024-12-12 06:34] LABS: Troponin I 0.047 ng/ml
[2024-12-12 08:58] LABS: Amphetamines Negative (Negative); Barbiturates Negative (Negative); Benzodiazepines Negative (Negative); Buprenorphine Negative (Negative); Cocaine Negative (Negative); Marijuana Positive (Negative); Methadone Negative (Negative); Methamphetamines Negative (Negative); Opiates Negative (Negative); Phencyclidine Negative (Negative); Tricyclic Antidepressants Negative (Negative)
--- NOTE | 2024-12-12 09:10 | HPS.HSE ---
Family Physician
-
Family Physician: * NONE
Chief Complaint
-
Epigastric abdominal pain, vomiting
History of Present Illness
39-year-old male with history of migraines, had a headache last Thursday and started taking 500 mg tablets of Tylenol into Thursday. He believes he may have taken anywhere from 20 to 25 tablets in total. He may have also taken aspirin. He
is a very poor historian and cannot provide any significant detail.
Subsequently developed epigastric abdominal pain and vomiting Thursday morning. May have had radiation of the pain up into his chest. Initial vomiting look like dinner from Thursday night. After several bouts of vomiting he had hematemesis. Also
has had loose stools since then.
Denies sick contacts. Denies antibiotic exposure recently.
Does not have a primary care doctor. Does not have health insurance.
Medical History
Past Medical History
Past Medical History: Reports Other
Additional Past Medical History:
COPD
Hypertension
Migraine headaches
Past Surgical History: Reports Orthopedic
Additional Past Surgical History:
Sinus surgery
Social History
Tobacco: Smoker
Alcohol: Occasional
Drug: Marijuana
Personal: Single
Living: With Family
Family History
Family History: Not pertinent
Allergies / Home Medications
Allergies reflects when Allergies were last updated in [employer].
Home Medications with original date entered in [employer]
Allergy/Medication List:
Allergies
Allergy/AdvReac Type Severity Reaction Status Date / Time
latex Allergy Unknown Verified 12/11/24 21:02
prednisone Allergy Unknown Verified 12/11/24 21:02
Home Medications
epinephrine 0.125 mg/actuation aerosol inhaler (Primatene Mist) 1 puff inhalation Q4H PRN SOB 05/25/23
albuterol sulfate 90 mcg/actuation aerosol inhaler 2 puff inhalation Q6H PRN shortness of breath or wheezing #6.7 grams 05/29/23
escitalopram oxalate 10 mg PO DAILY 10/19/23
amoxicillin 875 mg-potassium clavulanate 125 mg tablet 1 tab PO BID 7 days #14 tabs 06/23/24
ibuprofen 600 mg tablet 600 mg PO Q8H PRN Pain #14 tabs 06/23/24
Review of Systems
-
History Source: Patient
A 12 point ROS was completed and negative except as noted: Yes
Abdomen/GI: Reports Abdominal Pain, Nausea, Vomiting and Diarrhea
Physical Exam
Vital Signs
Vital Signs
Temp Pulse Resp BP Pulse Ox
98.0 F 103 18 153/109 100
12/12/24 08:20 12/12/24 08:20 12/12/24 08:20 12/12/24 08:20 12/12/24 08:20
Physical Exam
General: Well Developed, Well Nourished, No Apparent Distress and Comfortable
HEENT: NormoCephalic, Anicteric and Moist mucous membranes
Respiratory: Clear
Cardiac: S1/S2 and Regular Rhythm
GI: Soft, Non Distended and Tender
Genito-urinary: Deferred by me
Musculoskeletal: No Clubbing, No Cyanosis and No Edema
Skin: Warm and Dry
Neuro: AO x 3
Hematologic/Lymphatic: No Lymphadenopathy
Psych: Calm
Laboratory Results
-
12/11/24 21:08
12/11/24 21:08
Laboratory Results
Total Bilirubin 0.6 mg/dl (0.2-1.3) 12/11/24 21:08
AST 30 U/L (17-59) 12/11/24 21:08
ALT 37 U/L (0-50) 12/11/24 21:08
Alkaline Phosphatase 66 U/L (38-126) 12/11/24 21:08
Troponin I 0.047 ng/ml H* 12/12/24 05:53
Impression/Plan
-
Epigastric pain/vomiting -differential diagnosis of pancreatitis, gastritis, esophagitis, etc.
By history suspect Treva-Alvarado tear given onset of hematemesis after vomiting. Hemodynamically stable. Admit to telemetry and monitor overnight. Consult GI. IV Protonix. Antiemetics. Clear liquid diet.
Check stool if he has further diarrhea.
Acetaminophen overdose -his levels are undetectable. LFTs were normal last night, repeat today. Check PT/INR.
Elevated troponin -with normal EKG. No cardiac history. Doubt ACS. Will trend troponins. Monitor on telemetry.
Elevated blood pressure -suspect undiagnosed essential hypertension. Not on antihypertensives. Discussed with patient. He needs a primary care doctor and he needs to start checking blood pressures at home. Can consider starting low-dose
Procardia XL in the hospital depending upon blood pressure readings.
Tobacco dependence -cessation advised.
COPD without exacerbation -smoking cessation advised. Albuterol as needed. He also uses Breo inhaler at home.
Recommend to discontinue Primatene Mist given its risks. Discussed with patient.
Obesity due to excess calories
Full code
[2024-12-12 10:00] LABS: INR 0.95
[2024-12-12 10:00] LABS: Lipase 49 U/L (23-300)
[2024-12-12 10:02] LABS: ALT (SGPT) 40 U/L (0-50); AST (SGOT) 30 U/L (17-59); Albumin 4.2 g/dl (3.5-5.0); Alkaline Phosphatase 70 U/L (38-126); Blood Urea Nitrogen 10 mg/dl (9-20); Calcium 9.5 mg/dl (8.4-10.2); Carbon Dioxide 24 mmol/L (22-30); Chloride 104 mmol/L (98-107); Estimated Creatinine Clearance > 125 ml/min; Glucose 106 mg/dl (70-99); Potassium 3.4 mmol/L (3.5-5.1); Sodium 139 mmol/L (135-145); Total Bilirubin 0.6 mg/dl (0.2-1.3); Total Protein 6.8 g/dl (6.3-8.2); eGFR > 60.00
[2024-12-12] MEDS: NICODERM TRANSDERMAL 21 MG TRANSDERM (12:21)
--- NOTE | 2024-12-12 13:06 | CON.GI ---
Addendum entered and electronically signed by Kvng Andrade MD 12/12/24 15:22:
I saw and examined the patient.
The MEDICAL LANGUAGE SPECIALIST or PA's note was reviewed and I agree with the note.
Comment:
Pt is a 39 y/o with migraines who was taking excedrin and tylenol who had abdominal pain, vomiting with dark blood and now just abd pain which is mildly improved since coming to the ER. he tolerated clears. No hx of egd or colonoscopy
abd: soft, but mildly tender,
impression:
abdominal pain
hematemesis
plan:
continue clears
PPI
EGD in am
follow hgb, lfts, INR
Original Note:
Consultation
-
Date/Time Consultation Requested: 12/12/24 1116
Date/Time Consultation Performed: 12/12/24 1330
Requesting Provider: Luis Felipe Shannon DO
Performing Provider: NORY Neely, Romy Adorno MD
Reason for Consultation: epigastric pain, hematemesis
Medical History
Chief Complaint / HPI
Chief Complaint: epigastric pain
History of Present Illness:
Pt is a 39yo with hx COPD, anxiety, migraines, HTN who presents with epigastric pain and vomiting blood. In review with patient he noted increased headaches last week. Between Thursday and Thursday he took about 20 Tylenol and 2 Excedrin. He denies
any other prior NSAID use but per ER may have also taken ASA. He admits on Thursday he also began with abdominal pain and vomiting. He initially vomited food x 2 then dark blood. He also developed yellow diarrhea and presents for evaluation.
Symptoms persisted and pt presents for evaluation. On admission noted with hbg 17.3 with levels of Tylenol <10 and Salicylated <1. Pt continued with some abdominal pain today and asked to evaluate. he denies any recent travel, sick contact or
new medication. He denies dysphagia, GERD, nausea, vomiting, abdominal pain, constipation, blood or black in stools. No hx EGD or colonoscopy in past.
Past Medical History
Past Medical History: Asthma, COPD, Psychiatric (anxiety) and Other (migraines)
Past Surgical History: Other (sinus surgery)
Social History
Tobacco: Smoker (1PPD)
Alcohol: None
Drug: Marijuana
Living: With Family (grandmother )
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
Family History
Family History: Other (no family hx GI issues )
Allergies / Home Medications
Allergy/AdvReac Type Severity Reaction Status Date / Time
latex Allergy rash, Verified 12/12/24 09:54
itching
prednisone Allergy increased Verified 12/12/24 09:54
blood
pressure
�Medication �Instructions �Recorded
epinephrine 0.125 mg/actuation 1 puff inhalation Q4H PRN 05/25/23
aerosol inhaler (Primatene Mist) shortness of breath
fluticasone furoate 200 1 inh inhalation DAILY 12/12/24
mcg-vilanterol 25 mcg/dose
inhalation powder (Breo Ellipta)
Review of Systems
-
History Source: Patient
Constitutional: Reports No Symptoms and Chills
EENT: Reports No Symptoms
Respiratory: Reports No Symptoms
Abdomen/GI: Reports Abdominal Pain, Nausea, Vomiting (with hematemesis 2 days ago) and Diarrhea
: Reports No Symptoms
Musculoskeletal: Reports No Symptoms
Skin: Reports No Symptoms
Neurological: Reports Weakness
Endocrine: Reports No Symptoms
Hematologic/Lymphatic: Reports No Symptoms
Vital Signs
Temp Pulse Resp BP Pulse Ox
97.5 F 86 16 132/90 97
12/12/24 11:40 12/12/24 11:40 12/12/24 11:40 12/12/24 11:40 12/12/24 12:55
Physical Exam
Exam
General: Well Developed, Well Nourished, No Apparent Distress and Other (sleepy but arousable )
HEENT: Normocephalic and Anicteric
Respiratory: Clear
Cardiac: Regular Rhythm
GI: Soft, Non Tender and Non Distended
Musculoskeletal: No Clubbing and No Cyanosis
Skin: Warm and Dry
Neuro: Awake, Alert and AO x 3
Psych: Calm
Results
WBC 9.1 10^3/uL (4.8-10.8) 12/11/24 21:08
Hgb 17.3 g/dL (13.0-18.0) 12/11/24 21:08
Hct 47.7 % (39.0-52.0) 12/11/24 21:08
MCV 92.8 fL (80.0-94.0) 12/11/24 21:08
Plt Count 222 10^3/uL (130-400) 12/11/24 21:08
Absolute Neuts (auto) 6.7 10^3/uL (1.4-6.5) H 12/11/24 21:08
PT 13.0 Sec (11.4-14.6) 12/12/24 09:42
INR 0.95 12/12/24 09:42
Sodium 139 mmol/L (135-145) 12/12/24 09:42
Potassium 3.4 mmol/L (3.5-5.1) L 12/12/24 09:42
Chloride 104 mmol/L (98-107) 12/12/24 09:42
Carbon Dioxide 24 mmol/L (22-30) 12/12/24 09:42
BUN 10 mg/dl (9-20) 12/12/24 09:42
Creatinine 0.6 mg/dL (0.7-1.3) L 12/12/24 09:42
Calcium 9.5 mg/dl (8.4-10.2) 12/12/24 09:42
Total Bilirubin 0.6 mg/dl (0.2-1.3) 12/12/24 09:42
AST 30 U/L (17-59) 12/12/24 09:42
ALT 40 U/L (0-50) 12/12/24 09:42
Alkaline Phosphatase 70 U/L (38-126) 12/12/24 09:42
Lipase 49 U/L (23-300) 12/11/24 21:08
Diagnostic Image Results:
Prior GI Procedures:
EGD: none
Colonoscopy: none
Assessment / Plan
-
Pt is a 39yo with hx COPD, anxiety, migraines, HTN who presents with epigastric pain and vomiting blood. In review with patient he noted increased headaches last week. Between Thursday and Thursday he took about 20 Tylenol and 2 Excedrin. He denies
any other prior NSAID use but per ER may have also taken ASA. He admits on Thursday he also began with abdominal pain and vomiting. He initially vomited food x 2 then dark blood. He also developed yellow diarrhea and presents for evaluation.
Symptoms persisted and pt presents for evaluation. On admission noted with hbg 17.3 with levels of Tylenol <10 and Salicylated <1. Pt continued with some abdominal pain today and asked to evaluate. he denies any recent travel, sick contact or
new medication. He denies dysphagia, GERD, nausea, vomiting, abdominal pain, constipation, blood or black in stools. No hx EGD or colonoscopy in past.
-epigastric pain
-hematemesis on 12/10
-diarrhea
-migraines
-increased Tylenol/NSAID use several days ago
other med problems:
-COPD
-anxiety
-HTN
-marijuana use
PLAN:
etiology of epigastric pain and vomiting with coffee ground related to PUD with some NSAID use, gastritis, MW tear with initial vomiting then blood vs other
pt currently with no further vomiting but still pain
to try clear diet
if persistent pain consider EGD in AM
trend hbg
cont PPI
pt counseled on limiting NSAID and Tylenol use
last dose Tylenol pt reports was Thursday
trend LFT's and INR -- Tylenol and Salicylates levels normal
-
-
Thank you for consultation and allowing me to participate in the patient's care. Please call the contact center manager GI physician during the after hours with any questions or concerns.
[2024-12-12 13:08] LABS: Troponin I 0.095 ng/ml
--- NOTE | 2024-12-12 14:46 | CM ---
Initial assessment completed at bedside in ED
Pharmacy verified: [facility] @ [address] [place] [address]
Reported he has no family physician; and no health insurance; provided contact information to [facility] @
Patient lives with his sister and grandmother in a multilevel home; his bath/bedroom on the 2nd floor
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
No SNF or Home Health utilization history
Will transport self home
Plan: Discharge to home when stable
--- NOTE | 2024-12-12 15:02 | CS.PSYCHR ---
Consult Summary - Psychiatry
-
Pt is a 39 yo male with history of migraines, presented with epigastric pain after taking repeated doses of Tylenol for migraine headache since last Thursday. Pt reportedly started taking 500 mg tablets of Tylenol Thursday am, believes he may have
take as many as 20 to 25 tablets in total. Psychiatry asked to assess depression/ suicidal ideation. On interview, pt resting in bed, in mild distress, with dysphoric affect. Pt calm, cooperative, answering questions. He denies significant
depression, denies any suicidal ideation, denies any intentional overdose. Pt's mother within the past month; pt states he is coping okay, denies need for psychiatric treatment.
Psych Hx: significant depression as a teen, reported suicide attempt about 20 years ago
No recent treatment per pt
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
MSE: alert, oriented, calm, cooperative, makes eye contact. Speech coherent, thought goal-directed. Denies Suicidal ideation. Mood mildly dysphoric, affect appropriate. No signs of psychosis. Insight fair
Imp: Bereavement, R/o adjustment d/o. Mood appears stable
Rec: Pt declines need for mental health treatment. Would give info/resources for outpatient therapy- [facility] could assist if no medical coverage
1:1 supervision does not appear to be needed. Psychiatry will sign off. Please re-consult for any new concerns
[2024-12-12 15:38] LABS: Magnesium 1.9 mg/dl (1.6-2.3)
[2024-12-12] MEDS: KCL 40 MEQ PO (15:53)
[2024-12-12] MEDS: NSS 1000 IV (15:54)
--- NOTE | 2024-12-12 17:25 | PTCARENOTE ---
Pt expressed suicidal ideation during admission assessment. Pt stated past suicidal attempt 'like 20 years ago.' Placed on 1:1. Seen by Psych, 1:1 d/c'd. Reported desire to go outside 'for some fresh air.' Admits to wanting to smoke. New order for
Nicotine patch acknowledged and applied to patients arm.
[2024-12-12] MEDS: LOVENOX 40 MG SC (17:30)
[2024-12-12 18:27] LABS: Troponin I 0.101 ng/ml
[2024-12-12] MEDS: MELATONIN 5 MG PO (23:11)
[2024-12-12] MEDS: TYLENOL 650 MG PO (23:15)
[2024-12-12] MEDS: ProAIR HFA INHALER 2 PUFF INH (23:23)
[2024-12-13] VITALS (8 sets, daily range): BP systolic 18–161; BP diastolic 92–113
--- NOTE | 2024-12-13 00:15 | PTCARENOTE ---
Pt received from ED via stretcher. Ambulated to bed w/o incident. AAOx3, flat. Telemetry = SR. Oriented to environment, plan of care discussed. Admission completed prior to arrival. Full physical assessment documented (refer to worklist). #18
RAC w/NSS infusing w/o complication. Pt verbalizing hunger, instructed on clear liquid diet then NPO for EGD, verbalizes understanding. Pt requesting something to sleep, reports taking or 'abusing' tylenol PM. STOKER ERECTOR covering house contacted,
electronic orders received for melatonin (refer to MAR). Pt spiked temp 101.4. STOKER ERECTOR covering contacted, electronic orders received to send stool for norovirus. Call zabrina w/in reach.
[2024-12-13 08:01] LABS: INR 0.97; PT 13.2 Sec (11.4-14.6)
[2024-12-13 08:05] LABS: Hematocrit 43.6 % (39.0-52.0); Hemoglobin 15.7 g/dL (13.0-18.0); Mean Corpuscular Hgb 33.5 pg (27.0-31.0); Mean Platelet Volume 10.2 fL (7.4-10.4); Platelet Count 199 10^3/uL (130-400); Red Blood Cell Count 4.69 10^6/uL (4.70-6.10); Red Cell Dist. Width 12.9 % (11.5-14.5); White Blood Cell Count 5.8 10^3/uL (4.8-10.8)
[2024-12-13 08:13] LABS: ALT (SGPT) 43 U/L (0-50); AST (SGOT) 31 U/L (17-59); Alkaline Phosphatase 69 U/L (38-126); Blood Urea Nitrogen 12 mg/dl (9-20); Calcium 9.7 mg/dl (8.4-10.2); Carbon Dioxide 28 mmol/L (22-30); Chloride 103 mmol/L (98-107); Estimated Creatinine Clearance > 125 ml/min; Glucose 91 mg/dl (70-99); Potassium 4.1 mmol/L (3.5-5.1); Sodium 140 mmol/L (135-145); Total Bilirubin 0.8 mg/dl (0.2-1.3); Total Protein 6.6 g/dl (6.3-8.2); eGFR > 60.00
[2024-12-13] MEDS: NICODERM TRANSDERMAL 21 MG TRANSDERM (08:23)
[2024-12-13] MEDS: PROTONIX IV 40 MG IV (08:23)
[2024-12-13] MEDS: NSS (PRESERVATIVE FREE) 10 ML IV (08:24)
[2024-12-13 09:20] LABS: % Basophils 0.7 % (0-2); % Eosinophils 1.2 % (0-6); % Immature Granulocytes 0.9 % (0-0.5); % Monocytes 16.2 % (1.7-9.3); Absolute Eosinophils 0.1 10^3/uL (0-0.7); Absolute Immature Granulocytes 0.1 10^3/uL (0-0.05); Absolute Lymphocytes 1.8 10^3/uL (1.2-3.4); Absolute Monocytes 0.9 10^3/uL (0.1-0.6); Absolute Neutrophils 2.9 10^3/uL (1.4-6.5); Nucleated Red Blood Cells % 0 % (-)
--- NOTE | 2024-12-13 10:41 | W.PN.UPDATE ---
Update Note
Progress Note Update
see EGD report:
will f/u biopsies
ok for regular food
PPI once a day for a month
ok to d/c today
[2024-12-13] MEDS: ProAIR HFA INHALER 2 PUFF INH (12:00)
--- NOTE | 2024-12-13 13:14 | W.PN.HOSP.TC ---
Addendum entered and electronically signed by Luis Felipe Shannon DO 12/13/24 16:37:
Echo report is normal.
Medically stable for discharge.
Original Note:
Today's Communication/Plan
-
Start Procardia
Echocardiogram
Assessment / Plan
Assessment / Plan
Gen-AAOx3, NAD
HEENT-NC, AT, anicteric, clear oral mm
Neck-supple
CV-reg, no M, +S1/S2
Lungs-clear B/L
Abd-soft, NT, ND
Ext-no edema
Musculoskeletal-no cyanosis, clubbing
Skin-warm and dry
Neuro-grossly non-focal
Psych-calm, cooperative
Acute gastroenteritis -stool negative for norovirus. Culture pending. Tolerating diet. Nausea vomiting resolved. Told patient to limit dairy products given diarrhea.
Hematemesis -resolved. EGD shows gastritis, biopsied. Esophageal mucosal nodule found, biopsied. Once daily PPI per GI.
Acetaminophen overdose -mild. LFTs normal.
Hypokalemia -resolved.
Troponin elevation -denies chest pain. EKG unremarkable. Check echocardiogram. Doubt ACS clinically.
Elevated blood pressure -suspect undiagnosed, untreated essential hypertension. Start Procardia XL. Discussed with patient.
COPD without exacerbation -stable. Follow-up with pulmonary. He was seen by Dr. Clark in the past.
Tobacco dependence -smoking cessation advised. Continue nicotine patch.
Obesity due to excess calories
Full code
Dispo -potential discharge later today after echocardiogram. Outpatient follow-up.
Patient does not have health insurance, does not have a PCP. Can follow-up in the [facility] clinic.
Anticipated Discharge: Today
Subjective/Interval History
-
Date of Service: December 13, 2024
Patient seen and examined. Denies chest pain, nausea or vomiting. Complaining of loose stools. Denies abdominal pain.
Objective Data
-
Labs:
Laboratory Results
12/13/24
07:20
WBC 5.8
Hgb 15.7
Hct 43.6
Plt Count 199
PT 13.2
INR 0.97
Sodium 140
Potassium 4.1
Chloride 103
Carbon Dioxide 28
BUN 12
Creatinine 0.9
Glucose 91
Calcium 9.7
Total Bilirubin 0.8
AST 31
ALT 43
Alkaline Phosphatase 69
Vital Signs:
Vital Signs
Temp Pulse Resp BP Pulse Ox
98 F 87 16 156/99 96
12/13/24 11:48 12/13/24 12:07 12/13/24 12:07 12/13/24 11:48 12/13/24 11:48
Review of Systems
-
History Source: Patient
All other systems: Reviewed and negative
--- NOTE | 2024-12-13 13:58 | CM ---
CM reviewed chart, patient seen bedside. Patient denies needs at this time, confirms he has information for the [facility] for PCP follow up. CM will continue to follow for all discharge planning needs.
Plan; home no needs likely
[2024-12-13] MEDS: PROCARDIA XL (EXTENDED RELEASE) 30 MG PO (15:08)
--- NOTE | 2024-12-13 16:37 | W.DS.TRANS ---
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
-
Discharge Instructions:
Discharge Diagnosis/Procedures Acute gastroenteritis, elevated blood pressure
Diet Regular
Activity As tolerated
Driving Restrictions As prior to admission
Bathing Restrictions None
Instructions:
Stand-Alone Forms:
Changes to Home Medications: No
Discharge Medications:
DC Medications w/original date entered in [facility]
fluticasone furoate 200 mcg-vilanterol 25 mcg/dose inhalation powder (Breo Ellipta) 1 inh inhalation DAILY Lung/Breathing Issues 12/12/24
albuterol sulfate 90 mcg/actuation aerosol inhaler 2 puff inhalation R Q6HPRN PRN shortness of breath or wheezin #8.5 grams 12/13/24
nifedipine 30 mg tablet,extended release 30 mg PO DAILY #30 tabs 12/13/24
pantoprazole 40 mg tablet,delayed release (Protonix) 40 mg PO DAILY #30 tabs 12/13/24
Home Medication Changes
Pending Results: No
== END 2024-12-13 18:15 | disposition home or self-care (01) ==
LOC: 4 WEST ACU 11:15
PROVIDERS: Internal Medicine; Nurse Practitioner Adult Health; Physician Assistant; Student in an Organized Health Care Education/Training Program; ADMITTING PHYSICIAN Hospitalist; CONSULT PHYSICIAN Internal Medicine Gastroenterology; EMERGENCY PHYSICIAN Student in an Organized Health Care Education/Training Program; OTHER PHYSICIAN Psychiatry & Neurology Psychiatry
PROC: 0DB58ZX Excision of Esophagus, Via Natural or Artificial Opening Endoscopic, Diagnostic (ICD-10-PCS; 2024-12-13)
PROC: 0DB68ZX Excision of Stomach, Via Natural or Artificial Opening Endoscopic, Diagnostic (ICD-10-PCS; 2024-12-13)
DX: K52.9 Noninfective gastroenteritis and colitis, unspecified (principal); R10.13 Epigastric pain; F17.200 Nicotine dependence, unspecified, uncomplicated; E66.09 Other obesity due to excess calories; Z68.33 Body mass index [BMI] 33.0-33.9, adult; Z63.4 Disappearance and death of family member; K44.9 Diaphragmatic hernia without obstruction or gangrene; T39.1X1A Poisoning by 4-Aminophenol derivatives, accidental (unintentional), initial encounter; E87.6 Hypokalemia; I10 Essential (primary) hypertension; Z59.71 Insufficient health insurance coverage; R79.89 Other specified abnormal findings of blood chemistry; K29.50 Unspecified chronic gastritis without bleeding; K20.80 Other esophagitis without bleeding
CPT/HCPCS: 43239; 88305; 76700; 80053; 80143; 80179; 80306; 82077; 83690; 83735; 84484; 85025; 85610; 87045; 87046; 87070; 87427; 87798; 88342; 89055; 93005; 93306; 94640; 96361; 96374; 99285; 99406; G0378